=== PATIENT | female | born 1955 | race Caucasian/White ===

== ENCOUNTER 2022-11-03 14:10 | Emergency (ER) | payer OTHER ==
[~2022-11-03] VITALS: Ht 157.5 cm; Wt 80.7 kg
[2022-11-03 15:14] LABS: Source, Urine Voided
[2022-11-03 15:19] LABS: BASOPHILS ABSOLUTE AUTO 0.06 K/mm3 (0.00-0.23); BASOPHILS PERCENT AUTO 1 % (0-2); EOSINOPHILS ABSOLUTE AUTO 0.15 K/mm3 (0.00-0.68); EOSINOPHILS PERCENT AUTO 2 % (0-6); Hemoglobin 14.1 g/dL (11.5-16.0); IMMATURE GRAN ABSOLUTE AUTO 0.02 K/mm3 (0.00-0.10); IMMATURE GRAN PERCENT AUTO 0 % (0-1); LYMPHOCYTES ABSOLUTE AUTO 3.52 K/mm3 (0.84-5.20); LYMPHOCYTES PERCENT AUTO 40 % (21-46); MONOCYTES ABSOLUTE AUTO 0.69 K/mm3 (0.16-1.47); MONOCYTES PERCENT AUTO 8 % (4-13); Mean Corpuscular HGB 28.8 pg (26.0-34.0); Mean Corpuscular HGB Conc 32.8 g/dL (31.5-36.5); Mean Corpuscular Volume 88 fL (80-100); Mean Platelet Volume 10.8 fL (9.1-12.4); NEUTROPHILS ABSOLUTE AUTO 4.46 K/mm3 (1.96-9.15); NEUTROPHILS PERCENT AUTO 50 % (41-73); Platelet Count 234 K/mm3 (150-400); RDW Coefficient Variation 13.1 % (11.7-14.2); RDW Standard Deviation 42.5 fL (35.1-46.3)
[2022-11-03 15:20] LABS: Appearance, Urine Clear (Clear); Bilirubin, Urine Neg (Neg); Blood, Urine 1+ (Neg); Color, Urine Yellow (P-Yellow); Glucose Qualitative, Urine Neg (Neg); Ketones, Urine Neg (Neg); Leukocyte Esterase, Urine Neg (Neg); Nitrite, Urine Neg (Neg); Protein, Urine Neg (Neg); Urobilinogen, Urine NORM (Normal)
[2022-11-03 15:37] LABS: Albumin, Blood 3.5 g/dL (3.4-5.0); Bilirubin, Total 0.3 mg/dL (0.1-1.0); Bun/Creatinine Ratio 16.3 (12.0-20.0); Calcium, Blood 8.9 mg/dL (8.5-10.1); Creatinine, Blood 0.8 mg/dL (0.40-1.00); Globulin, Blood 3.5 g/dL (2.2-4.0); Potassium, Blood 4.1 mmol/L (3.5-5.5)
[2022-11-03 15:48] LABS: Bacteria Few /hpf; Red Blood Cells, Urine 0-2 /hpf (0-2); Squamous Epithelial Cells Rare /hpf (Few); White Blood Cells, Urine 0-2 /hpf (0-5)
[2022-11-03 15:52] VITALS: BP 110/48
[2022-11-03] MEDS ORDERED: TOLTERODINE TART4 MG PO (19:03)
== END 2022-11-03 19:05 | disposition home or self-care (01) ==
LOC: ER 14:10
PROVIDERS: Student in an Organized Health Care Education/Training Program
DX: R10.32 Left lower quadrant pain (principal); R11.10 Vomiting, unspecified; Z98.84 Bariatric surgery status
CPT/HCPCS: 74177; 80053; 81001; 83690; 85025; 99284-25; Q9967

== ENCOUNTER 2024-04-27 09:29 | Day surgery (SDC) | payer OTHER ==
[~2024-04-27] VITALS: Ht 152.4 cm; Wt 78.8 kg
[~2024-04-27 09:29] MED LIST: EPINEPhrine HCl 1 MG/ML 1ML Amp ONE; TOLTERODINE TART4 MG PO
[2024-04-27] MEDS ORDERED: Lactated Ringer's 1,000 ML IV ONE ×2 (10:39→12:10)
[2024-04-27] MEDS ORDERED: CeFAZolin Sodium 2,000 MG VIAL ONE (10:41)
[2024-04-27] MEDS ORDERED: Rocuronium Bromide 10 MG/ML 5ML Injection IV ONE (10:43)
[2024-04-27] MEDS ORDERED: Midazolam HCl 1MG / ML 2ML Vial ONE (10:43)
[2024-04-27] MEDS ORDERED: propofoL 20 ML IV ONE (10:43)
--- NOTE | 2024-04-27 10:56 | NUR ---
04/27/24 1056 Pita Mckeon DONE WITH DR MEEKS, PT TOLERATED WELL. PT ON 5L SUPPLIMENTAL O2 VIA NASAL CANULA DURING PROCEDURE. PT'S SATS ARE NOW 98% ON ROOM AIR.
[2024-04-27] MEDS ORDERED: EPINEPhrine HCl 1 MG/ML 1ML Amp XX ONE (11:26)
--- NOTE | 2024-04-27 11:36 | NUR ---
04/27/24 1136 Sadiq Webb 1 MG EPI ADDED TO THE FIRST BAG OF LR FOR IRRIGATION AT [facility], [facility]IN [facility].
[2024-04-27] MEDS ORDERED: Ketorolac Tromethamine 30mg Vial ONE (12:27)
[2024-04-27] MEDS ORDERED: Dexamethasone Sod Phos 10 MG/ML 1ML VIAL ONE (12:27)
[2024-04-27] MEDS ORDERED: Ondansetron HCl 2 MG / ML 2ML Vial ONE (12:27)
[2024-04-27] MEDS ORDERED: Sugammadex Sodium 200 MG/2ML SDV (100 MG/ML) ONE (12:27)
--- NOTE | 2024-04-27 12:59 | NUR ---
04/27/24 1259 Maris Duarte PT TO PACU ON ROOM AIR. PATIENT HOOKED UP TO PACU MONITOR, AND BEGAN TO DESAT. OXYGEN APPLIED- FACETENT 15L AND MDA PERFORMED JAW THRUST. MOVED O2 MONITOR TO DIFFERENT HAND TO VERIFY READING. PT BECAME AROUSABLE AND O2 BACK WITHIN NORMAL LIMITS.
[2024-04-27] MEDS ORDERED: OxyCODONE HCL 5 MG TAB ONE (13:27)
--- NOTE | 2024-04-27 13:31 | NUR ---
04/27/24 1331 Maris Duarte SIGNIFICANT OTHER AT BEDSIDE. PT PLACED UPPER AND LOWER DENTURES BACK IN MOUTH, AND GLASSES ARE ON. PT SITTING IN RECLINER, TOLERATING ORAL FLUIDS AND SNACKS WELL.
[2024-04-27 13:44] VITALS: BP 96/43
== END 2024-04-27 14:19 | disposition home or self-care (01) ==
LOC: ORSCSDS 09:29
PROVIDERS: Orthopaedic Surgery
PROC: 0LM24ZZ Reattachment of Left Shoulder Tendon, Percutaneous Endoscopic Approach (ICD-10-PCS; principal; 2024-04-27 12:30)
PROC: 0RNK4ZZ Release Left Shoulder Joint, Percutaneous Endoscopic Approach (ICD-10-PCS; principal; 2024-04-27 12:30)
DX: M75.102 Unspecified rotator cuff tear or rupture of left shoulder, not specified as traumatic (principal); M19.012 Primary osteoarthritis, left shoulder; M94.212 Chondromalacia, left shoulder; Z87.891 Personal history of nicotine dependence
CPT/HCPCS: 82947; A9270; C1713; J0171; J0690; J1100; J1885; J2250; J2405; J2704; J7120